=== PATIENT | female | born 1995 | race Two or more races ===

== ENCOUNTER 2018-12-01 02:25 | Emergency (ER) | payer OTHER ==
--- NOTE | 2018-12-01 02:27 | EDPHY ---
H & P Time Seen by Provider: 12/01/18 02:27 HPI/ROS: HPI CHIEF COMPLAINT: Alcohol Intoxication HISTORY OF PRESENT ILLNESS: Patient is a 23-year-old female she arrives to the emergency room by private vehicle for acute alcohol intoxication. States she had multiple whiskey shots this evening. She arrives by private vehicle, her sister is also in the emergency room highly intoxicated with alcohol. She arrives to the ER slurring his speech. Unable to ambulate. However she is able to answer questions. Past Medical History: Traumatic brain injury Past Surgical History: No recent surgery Social History: Large amount of alcohol this evening. Family History: Noncontributory ROS REVIEW OF SYSTEMS: 10 Systems were reviewed and negative with the exception of the elements mentioned in the history of present illness. Exam Constitutional Intoxicated, triage nursing summary reviewed, vital signs reviewed, Sleepy, smells of alcohol Eyes normal conjunctivae and sclera, horizontal beating nystagmus consistent acute alcohol intoxication, otherwise pupils equal and react to light HENT normal inspection, atraumatic, moist mucus membranes, no epistaxis, neck supple/ no meningismus, no raccoon eyes. Respiratory clear to auscultation bilaterally, normal breath sounds, no respiratory distress, no wheezing. Cardiovascular rate normal, regular rhythm, no murmur, no edema, distal pulses normal. Gastrointestinal soft, non-tender, no rebound, no guarding, normal bowel sounds, no distension, no pulsatile mass. Genitourinary no CVA tenderness. Musculoskeletal no midline vertebral tenderness, full range of motion, no calf swelling, no tenderness of extremities, no meningismus, good pulses, neurovascularly intact. Skin pink, warm, & dry, no rash, skin atraumatic. Neurologic sleepy, intoxicated with alcohol,, alert and oriented x 3, AAOx3, moves all 4 extremities equally, motor intact, sensory intact, CN II-XII intact , , normal vision, normal speech. Psychiatric normal mood/affect. Heme/Lymph/Immune no lymphadenopathy. Differential Diagnosis: Includes but is not limited to in a particular order acute alcohol intoxication, alcohol abuse, dehydration, electrolyte abnormality , nausea vomiting from acute alcohol intoxication Medical Decision Making: Plan for this patient monitor for worsening of condition, monitor for sobriety. Once patient is more sober she can be safely discharged from the emergency room. Re-evaluation: 4:39 a.m. patient ambulatory. Clinically sober. Answers questions appropriately. Safe for discharge. Father at bedside would like to take her home. Source: Patient Exam Limitations: Clinical condition, Intoxication - Medical/Surgical History Hx Asthma: No Hx Chronic Respiratory Disease: No Hx Diabetes: No Hx Cardiac Disease: No Hx Renal Disease: No Hx Cirrhosis: No Hx Alcoholism: No Hx HIV/AIDS: No Hx Splenectomy or Spleen Trauma: No Other PMH: PMH- TBI, CONCUSSION X3, DEPRESSION, CUTTER - Social History Smoking Status: Never smoked Constitutional: Initial Vital Signs Temperature (C) 36.4 C 12/01/18 02:28 Heart Rate 83 12/01/18 02:28 Respiratory Rate 16 12/01/18 02:28 Blood Pressure 92/82 H 12/01/18 02:28 O2 Sat (%) 91 L 12/01/18 02:28 O2 Delivery Mode Room Air Allergies/Adverse Reactions: No Known Allergies Allergy (Verified 12/01/18 02:27) Home Medications: Medication Instructions Recorded NK [No Known Home Meds] 06/02/15 Medical Decision Making - Data Points Medications Given: Discontinued Medications Ondansetron HCl (Zofran Odt) 4 mg PO EDNOW ONE Stop: 12/01/18 02:31 Last Admin: 12/01/18 02:30 Dose: 4 mg Departure - Departure Disposition: Home, Routine, Self-Care Clinical Impression: Alcoholic intoxication Qualifiers: Complication of substance-induced condition: uncomplicated Qualified Code(s): F10.920 - Alcohol use, unspecified with intoxication, uncomplicated Condition: Good Instructions: Alcohol Intoxication (ED) Referrals: NONE *PRIMARY CARE P,. [Primary Care Provider] - As per Instructions
[2018-12-01] MEDS ORDERED: ONDANSETRON DISINTEGRATING 4 MG TAB PO ONE (02:30)
[2018-12-01 04:41] VITALS: BP 110/76
== END 2018-12-01 04:41 | disposition home or self-care (01) ==
DX: F10.920 Alcohol use, unspecified with intoxication, uncomplicated (principal)